=== PATIENT | female | born 1995 | race Caucasian/White ===

== ENCOUNTER → 2016-06-30 | Outpatient (CLI) | payer BC ==
--- NOTE | ~2016-06-30 | CT6 ---
[facility] A Service of [facility] [place] RADIOLOGY TEXT RESULTS PATIENT: OLY PAZ LOCATION: [facility] : 94 UNIT #: [id number] AGE: [address]: Alfonso Vasquez MD SEX: F ORDER DR: [id number] [facility] [address] [place], [place] [address] [id number] O MR#: [id number] Acc #: [id number] NAME: OLY PAZ : 1995 SEX: F STUDY DATE/TIME: 06/30/2016 14:53 UNIT: [facility] ROOM: STUDY DESCRIPTION: CT Abdomen WWo Cont Attending Physician: Alfonso Vasquez M.D. Referring Physician: Alfonso Vasquez M.D. Ordering Physician: Alfonso Vasquez M.D. Primary Care Physician: No Primary Care Physician MEDICAL IMAGING REPORT This report is preliminary unless electronic signature is present EXAM CT abdomen and pelvis with and without contrast INDICATIONS Flank pain lower back pain and hematuria for the past 2 months. Urinary tract infection. PROCEDURE Unenhanced CT of the abdomen. Multiphase postcontrast CT of the abdomen. This CT exam was performed with one or more of the following radiation dose reduction techniques: automatic control, adjustment of mA and/or kV according to patient size, and iterative reconstruction. COMPARISON None FINDINGS ABDOMEN WITHOUT CONTRAST: Included lung bases are predominately clear. No radiodense gallstone. No radiodense urinary system calculus. PELVIS WITHOUT CONTRAST: No radiodense bladder calculus. ABDOMEN WITH CONTRAST: Kidneys enhance symmetrically. No renal mass. Symmetric excretion of contrast. No abnormal filling defect in the collecting systems or ureters. Liver spleen adrenal glands pancreas gallbladder unremarkable. The bowel loops are nondilated. Appendix is normal. No appreciable inflammatory change around the kidneys. PELVIS WITH CONTRAST: No bladder mass or bladder wall thickening. No [facility] A Service of [facility] RADIOLOGY TEXT RESULTS PATIENT: OLY PAZ LOCATION: [facility]AT : 94 UNIT #: [id number] AGE: [address]: Alfonso Vasquez MD SEX: F ORDER DR: pelvic mass or fluid. No aggressive appearing bone lesion. IMPRESSION 1. No acute findings. No radiodense urinary system calculus, renal mass or renal inflammatory change. 2. No finding to explain the patient's hematuria. Dictated by... Paul Tavarez M.D. THIS IS AN ELECTRONICALLY VERIFIED REPORT Paul Tvaarez M.D. at 07/01/2016 7:02 AM KENIA/sofia TD: 07/01/2016 00:00 JOB #: [id number] MEDICAL IMAGING REPORT Page 1 of 1 COPY
== END | disposition home or self-care (01) ==
LOC: CCAT 13:20
DX: M54.5 Low back pain (principal); R31.9 Hematuria, unspecified; Z87.440 Personal history of urinary (tract) infections
CPT/HCPCS: 74170; Q9967